=== PATIENT | female | born 1950 | race Two or more races ===

== ENCOUNTER → 2024-04-09 | Outpatient (CLI) | payer OTHER, MEDICAID, SELFPAY ==
[2024-04-08 10:55] LABS: Basophils % (Auto) 0 % (0-2.5); Eosinophils # (Auto) 0.2 Thou/mm3 (0.0-0.5); Eosinophils % (Auto) 2 % (0-10); Hematocrit 36.1 % (36.0-46.0); Hemoglobin 12.4 g/dL (12.0-16.0); Immature Granulocytes % (Auto) 0 % (0-0); Immature Granulocytes Auto 0.02 Thou/mm3 (0.00-0.00); Lymphocytes # (Auto) 2.7 Thou/mm3 (1.0-4.8); Lymphocytes % (Auto) 37 % (10-50); Mean Corpuscular HGB Conc 34.3 g/dl (31.0-37.0); Mean Corpuscular Hemoglobin 30.2 pg (25.0-35.0); Mean Corpuscular Volume 88 fL (80-100); Monocytes # (Auto) 0.6 Thou/mm3 (0.0-0.8); Monocytes % (Auto) 8 % (0-12); Neutrophils # (Auto) 3.7 Thou/mm3 (1.8-7.7); Neutrophils % (Auto) 52 % (37-80); Nucleated Red Blood Cell % 0 /100 WBC (0); Platelet Count 225 Thou/mm3 (140-440); White Blood Count 7.2 Thou/mm3 (3.6-11.0)
[2024-04-08 11:01] LABS: INR 0.9 (0.9-1.3); Partial Thromboplastin Time 25.1 Seconds (22.0-36.0); Prothrombin Time 10.3 Seconds (9.0-12.2)
--- NOTE | 2024-04-09 09:30 | XR_ITS ---
Examinations: Ultrasound-guided percutaneous breast biopsy, right breast 10:00 nodule Right breast sonography limited. Exam date and time: April 09, 2024 1044 hours INDICATIONS: Right breast sonogram 01/12/2024 BI-RADS 4 suspicious mass 10:00 position right breast. Informed consent provided. Technique: A timeout was completed verifying correct patient, procedure, site, positioning, and special equipment if applicable Informed consent provided. The patient was placed in a supine position for the breast biopsy. Sonographic images of the breast were performed for localization of the suspicious nodule The patient's breast was prepped and draped in sterile fashion. Maximum sterile barrier technique, hand hygiene, ultrasound sterile technique 1% lidocaine was used to anesthetize the skin and breast adjacent to the suspicious nodule. Utilizing ultrasonographic guidance, 8 core biopsies were obtained of the suspicious nodule utilizing an 18-gauge BioPince needle. The specimens appears satisfactory. US guided breast biopsy marker placement. Estimated blood loss 3 cc. The patient tolerated the procedure well and there were no complications. Impression: Successful ultrasound-guided percutaneous breast biopsy, right breast 10:00 nodule. Ultrasound guided breast biopsy marker placement.
== END | disposition home or self-care (01) ==
LOC: SDIM 09:13 → SIRX 10:39
PROVIDERS: Radiology Diagnostic Radiology; PCP Nurse Practitioner Family; Referring Provider Nurse Practitioner Family; Visit Provider Nurse Practitioner Family
DX: C50.411 Malignant neoplasm of upper-outer quadrant of right female breast (principal); Z17.0 Estrogen receptor positive status [ER+]; Z01.818 Encounter for other preprocedural examination
CPT/HCPCS: 19083; 36415; 85025; 85610; 85730; A4648

== ENCOUNTER 2024-04-25 18:34 | Emergency (ER) | payer OTHER, MEDICAID, SELFPAY ==
[2024-04-25 18:35] VITALS: BMI 29.2
[2024-04-25 18:49] VITALS: BP 169/77; PULSE 77; RESP 18; TEMP 36.9; O2SAT 99
--- NOTE | 2024-04-25 20:09 | PD.EDRME ---
Rapid Medical Screening Exam RME Arrival date/time: 04/25/24 18:34 73 year old female present to ED for c/o of LLQ for 4 days I have greeted and performed a focused initial assessment of this patient. A comprehensive ED assessment and evaluation of the patient, analysis of all test results, and completion of the medical decision making process will be conducted by additional ED providers. Chief Complaint: Abdominal Pain Time Seen by Provider: 04/25/24 18:56 Vital signs: Vital Signs Temperature 98.5 F 04/25/24 18:49 Pulse Rate 77 04/25/24 18:49 Respiratory Rate 18 04/25/24 18:49 Blood Pressure 169/77 H 04/25/24 18:49 Pulse Oximetry (%) 99 04/25/24 18:49 Oxygen Delivery Method Room Air 04/25/24 18:49
[2024-04-25 20:49] LABS: Lactate (Lactic Acid) 1.2 mMol/L (0.4-2.0)
[2024-04-25] MEDS: HYDROcodone/APAP 5/325 TABLET 1 TAB PO (20:49)
[2024-04-25] MEDS: ONDANSETRON ODT 4 MG TABRAP PO (20:49)
[2024-04-25 20:57] LABS: Collection Type, Urine Voided
[2024-04-25 21:03] LABS: Basophils % (Auto) 0 % (0-2.5); Eosinophils # (Auto) 0.1 Thou/mm3 (0.0-0.5); Eosinophils % (Auto) 1 % (0-10); Hematocrit 38.9 % (36.0-46.0); Hemoglobin 13.4 g/dL (12.0-16.0); Immature Granulocytes % (Auto) 0 % (0-0); Immature Granulocytes Auto 0.07 Thou/mm3 (0.00-0.00); Lymphocytes # (Auto) 3.5 Thou/mm3 (1.0-4.8); Lymphocytes % (Auto) 22 % (10-50); Mean Corpuscular HGB Conc 34.4 g/dl (31.0-37.0); Mean Corpuscular Hemoglobin 29.6 pg (25.0-35.0); Mean Corpuscular Volume 86 fL (80-100); Monocytes # (Auto) 1.5 Thou/mm3 (0.0-0.8); Monocytes % (Auto) 10 % (0-12); Neutrophils # (Auto) 10.5 Thou/mm3 (1.8-7.7); Neutrophils % (Auto) 67 % (37-80); Nucleated Red Blood Cell % 0 /100 WBC (0); Platelet Count 256 Thou/mm3 (140-440); Red Blood Count 4.52 Miln/mm3 (4.00-5.20); White Blood Count 15.8 Thou/mm3 (3.6-11.0)
[2024-04-25 21:09] LABS: Alanine Aminotransferase 22 U/L (10-49); Albumin, Serum 5.2 gm/dL (3.4-4.8); Alkaline Phosphatase 80 U/L (46-116); Anion Gap 9 (7-16); Aspartate Amino Transferase 15 U/L (0-34); BUN/Creatinine Ratio 13 Ratio (12-20); Bilirubin,Total 0.5 mg/dL (0.3-1.2); Blood Urea Nitrogen 13 mg/dL (9-23); Calcium 10.7 mg/dL (8.3-10.6); Calcium (Corrected) 10.7 mg/dL (8.5-10.1); Carbon Dioxide 25.9 mMol/L (20.0-31.0); Chloride 101 mMol/L (98-107); Estimated Creatinine Clearance 50.4 mL/min (>60); Globulin 2.6 gm/dL (2.3-3.5); Glucose 126 mg/dL (74-106); Osmolality,Calculated 274 (275-295); Potassium 4.4 mMol/L (3.4-5.1); Sodium 136 mMol/L (136-145); Total Protein 7.8 gm/dL (5.7-8.2); eGFR 59 See Note
[2024-04-25 21:09] LABS: Bilirubin,Urine Negative (Negative); Blood,Urine Negative (Negative); Clarity,Urine Clear (Clear/Hazy); Color,Urine Colorless (Lt Yel-Yel); Glucose, Urine Negative (Negative); Ketones,Urine Negative (Negative); Leukocyte Esterase,Urine Negative (Negative); Nitrite,Urine Negative (Negative); Protein,Urine Negative (Neg - Trace); RBC,Urine 2 /hpf (0-3); Specific Gravity,Urine 1.014 (1.001-1.035); Squamous Epithelial Cell,Urine < 1 /hpf (0-5); Urobilinogen,Urine Negative mg/dL (0.0-1.0); WBC,Urine 1 /hpf (0-5)
[2024-04-25 21:21] LABS: INR 0.9 (0.9-1.3); Prothrombin Time 9.9 Seconds (9.0-12.2)
--- NOTE | 2024-04-26 | XR_ITS ---
Examination: CT abdomen with intravenous contrast CT pelvis with intravenous contrast 2-D coronal reconstructions 2-D sagittal reconstructions Date and time of exam:April 26, 2024 0723 hrs. Comparison July 22, 2020 Indications: Left lower abdominal pain beginning 4 days ago, history acute sigmoid diverticulitis on CT study July 22, 2020. CTDI: vol (mGy) 8.63 DLP: (mGycm) 491 Technique: Multiple axial sections of the abdomen and pelvis have been obtained. 64 slice high-resolution scanner used. 3 mm axial sections have been obtained, post intravenous injection 60 cc [id number] 2-D sagittal, coronal reconstructions obtained. Low dose protocols were performed. One or more of the following dose reduction techniques were used; automated exposure control, adjustment of the mA and/or KV according to patient size, use of iterative reconstruction technique. Findings: No focal liver or splenic lesions Absent gallbladder No pancreatic or adrenal mass No renal or ureteral calculi, no hydronephrosis Abdominal aortic calcification no aneurysmal dilatation Normal appendix No bowel obstruction Colonic diverticulosis Acute sigmoid diverticulitis, axial images 162 through 172, no peridiverticular abscess Anteverted uterus Prominent osteopenia with moderate degenerative disc disease L5-S1 Moderate narrowing hip joints Impression: Acute sigmoid diverticulitis, no peridiverticular abscess Rectosigmoid arvizu are thickened, recommend colonoscopy post treatment for the patient's diverticulitis
[2024-04-26 02:15] VITALS: BP 144/78; PULSE 60; RESP 16; TEMP 37.1; O2SAT 98
--- NOTE | 2024-04-26 02:41 | PRELIM_ITS ---
CT scan of the abdomen and pelvis with intravenous contrast (axial sections with sagittal and coronal reformats). April 26, 2024 at 0139 hours Clinical History: Left lower quadrant for 4 days, history of colitis. Comparison: No prior study is available for comparison. Findings:There are multiple colo degardo diverticula with focal thickening of the sigmoid colon and surrounding fat stranding. There is no free air or free fluid.No evidence of bowel obstruction. The appendix is within normal limits.Fluid filled small bowel loops seen.The liver, spleen, pancreas, adrenals and kidneys are unremarkable.Gall bladder not visualized, surgically absent.The urinary bladder is unremarkable. The uterus and adnexa are unremarkable. Degenerative changes are identified in the spine. The lung bases are clear.The aort a and its branches demonstrate atheromatous calcification without evidence of aneurysm. Impression:Ac arturo sigmoid diverticulitis without abscess or free air.Fluid filled small bowel loops, non specific. Report Electronically Signed By: Brad Baez 04/26/2024 2:40:11 AM [EST]
--- NOTE | 2024-04-26 03:02 | PD.EDABDPN ---
ED Abdominal Pain RME/HPI General Chief Complaint: Abdominal Pain Stated complaint: ABD PAIN x 4 DAYS AND HX DIVETICULITIS Time seen by provider: 04/25/24 18:56 Arrival date/time: 04/25/24 18:34 73 year old female present to emergency room with c/o of LLQ for 4 days. history of diverticulitis LOCATION: LLQ SEVERITY: Symptoms are described as being severe with limitations on activities of daily living QUALITY: Symptoms are described as being cramping CONTEXT: The patient is unable to identify any inciting events. DURATION/TIMING: The symptoms started approximately 4 day ago and have been waxing/waning but always present without ever completely resolving. ASSOCIATED SYMPTOMS: The patient is unable to identify any other associated symptoms. MODIFYING FACTORS: The patient is unable to identify any alleviating or aggravating symptoms. PERTINENT ROS: no fevers, no anorexia, no nausea or vomiting, no diarrhea, no ripping or tearing sensations, no syncope or presyncopal symptoms, denies trauma, denies genital pain REVIEW OF SYSTEMS: See History of Present Illness - with the exception of those mentioned in the history of present illness, all other systems reviewed and reported as negative GENERAL: In general the patient is awake, interactive, in an emergency department gurney. HEAD/EYES/EARS/NOSE/THROAT: normo-cephalic, atraumatic, mucus membranes are moist, anicteric, palpebral conjunctiva is pink, trachea is midline. CARDIOVASCULAR: regular rate and regular rhythm, no murmurs, heart sounds are not distant, strong pulses in all four extremities that are equal and symmetric bilateral upper and lower extremities, normal capillary refill. CHEST/PULMONARY: normal chest rise and fall, good air movement, clear to auscultation bilaterally, normal inspiratory to expiratory ratios without evidence of respiratory distress. NECK: No midline/Paraspinal tenderness, no step off ROM/Strenght intact No Kernig and bruzinski sign. No trauma ABDOMEN: soft, LLQ tenderness , no masses appreciated BACK: normal range of motion without pain. NEUROLOGICAL: cranio-facial features are symmetric, moves all four extremities equally without obvious limitations or weakness. EXTREMITY: no tenderness to palpation over the long bones or large joints of the bilateral upper and lower extremities, no joint swelling, no joint erythema, no signs of trauma, no unilateral leg swelling and no peripheral edema. SKIN: warm, dry, well-perfused, no jaundice, no rash, no telangiectasias or petechia. PSYCH: calm, cooperative, no evidence of psychosis or agitation RME / HPI RME / HPI narrative: 04/25/24 18:34 73 year old female present to ED for c/o of LLQ for 4 days I have greeted and performed a focused initial assessment of this patient. A comprehensive ED assessment and evaluation of the patient, analysis of all test results, and completion of the medical decision making process will be conducted by additional ED providers. Related Data Home Medications ?Medication ?Instructions ?Recorded ?Confirmed simvastatin 5 mg tablet 20 mg PO DAILY 12/13/17 10/10/23 metformin 500 mg tablet 500 mg PO QDAY 04/23/20 10/10/23 diclofenac sodium 25 mg 25 mg PO QDAY 10/24/22 10/10/23 tablet,delayed release hydrochlorothiazide 25 mg tablet 25 mg PO QDAY 10/24/22 10/10/23 losartan 100 mg tablet 100 mg PO QDAY 10/24/22 10/10/23 omega-3 acid ethyl esters 1 gram 1 cap PO QDAY 10/24/22 10/10/23 capsule estradiol 0.01% (0.1 mg/gram) 2 g vaginal DIRECTED 06/08/23 10/10/23 vaginal cream (Estrace) Previous Rx's ?Medication ?Instructions ?Recorded amoxicillin 875 mg-potassium 1 tab PO Q8H 5 days #15 tabs 04/26/24 clavulanate 125 mg tablet Allergies Allergy/AdvReac Type Severity Reaction Status Date / Time No Known Allergies Allergy Verified 04/25/24 18:37 Course Quality Measures none Orders Category Date Time Status CT Screening NOW Care 04/25/24 20:10 Active IV [Insert IV] STAT Care 04/25/24 20:[address] abdomen pelvis w con Stat Exams 04/25/24 20:09 Taken Blood Culture (Lab) Stat Lab 04/25/24 20:22 Received CBC Stat Lab 04/25/24 20:22 Completed CMP [Comprehensive Metabolic Panel] Stat Lab 04/25/24 20:22 Completed INR [Prothrombin Time with INR] Stat Lab 04/25/24 20:22 Completed Lactic Acid [Lactate (Lactic Acid)] Stat Lab 04/25/24 20:22 Completed UA [Urinalysis] Stat Lab 04/25/24 20:50 Completed Amoxicillin/Pot Clav 875 [Augmentin 875] Med 04/26/24 02:40 Discontinued 1 tab PO X1 ONE HYDROcodone*/APAP 5/325 [Frederick 5/325] Med 04/25/24 20:10 Discontinued 1 tab PO X1 ONE Ondansetron Odt [Zofran Odt] Med 04/25/24 20:10 Discontinued 4 mg PO X1 ONE Piper/Tazo Inj [Zosyn Inj] 3.375 gm Med 04/26/24 02:21 Discontinued Sodium Chloride 0.9% (P) [Ns 0.9% (P)] 50 ml IV X1 Piper/Tazo Inj [Zosyn Inj] 3.375 gm Med 04/26/24 03:00 Active Sodium Chloride 0.9% (P) [Ns 0.9% (P)] 50 ml IV X1 Vital Signs Vital signs: Vital Signs Temperature 98.5 F 04/25/24 18:49 Pulse Rate 77 04/25/24 18:49 Respiratory Rate 18 04/25/24 18:49 Blood Pressure 169/77 H 04/25/24 18:49 Pulse Oximetry (%) 99 04/25/24 18:49 Oxygen Delivery Method Room Air 04/25/24 18:49 Abdominal Pain MDM MDM Narrative MDM Narrative:: Patient has diverticulitis that is amenable to oral antibiotics. Patient has no peritoneal signs or signs of perforation. Patient?s symptoms not typical for other emergent causes of abdominal pain such as, but not limited to, appendicitis, abdominal aortic aneurysm, surgical biliary disease, acute coronary syndrome, etc. Patient will be discharged with strict return precautions and follow up with primary MD within 12-24 hours for further evaluation. ?Patient understands that they may require admission and IV antibiotics and possibly surgery if they do not improve with oral antibiotics. Patient data External records reviewed:: None Clinical information provided by:: patient and family Social determinants that could affect healthcare access:: none Patient has the following chronic illnesses:: none How is presenting disease/condition affected by chronic disease/condition?: exacerbated by Evaluation data The following diagnostics were reviewed and interpreted by me:: lab results and radiology exam(s) Lab and/or radiology exams considered but not ordered:: none Interpretation Summary: ct: Findings: There are multiple colonic diverticula with focal thickening of the sigmoid colon and surrounding fat stranding. There is no free air or free fluid. No evidence of bowel obstruction. The appendix is within normal limits. Fluid filled small bowel loops seen. The liver, spleen, pancreas, adrenals and kidneys are unremarkable. Gallbladder not visualized, surgically absent. The urinary bladder is unremarkable. The uterus and adnexa are unremarkable. Degenerative changes are identified in the spine. The lung bases are clear. The aorta and its branches demonstrate atheromatous calcification without evidence of aneurysm. Impression: Acute sigmoid diverticulitis without abscess or free air. Fluid filled small bowel loops, non specific. cbc: 15k urine no infection cmp no acute findings Medications / Prescriptions Medications or Prescriptions considered but not ordered:: none Medication administrations:: Medication Administration History Piperacillin Sod/Tazobactam (Sod 3.375 gm/ Sodium Chloride) 50 mls @ 100 mls/hr IV X1 ONE Stop: 04/26/24 03:29 Discontinued Medications Hydrocodone Bitart/Acetaminophen (Hydrocodone/Apap 5/325 Tablet) 1 tab PO X1 ONE Stop: 04/25/24 20:11 Last Admin: 04/25/24 20:49 Dose: 1 tab Documented By: Amoxicillin/Clavulanate Potassium (Amoxicillin/Pot Clav 875 Tablet) 1 tab PO X1 ONE Stop: 04/26/24 02:41 Piperacillin Sod/Tazobactam (Sod 3.375 gm/ Sodium Chloride) 50 mls @ 100 mls/hr IV X1 ONE Stop: 04/26/24 02:50 Last Admin: 04/26/24 02:49 Dose: Not Given Documented By: RC Non-Admin Reason: Discontinued Ondansetron HCl (Ondansetron Odt 4 Mg Tabrap) 4 mg PO X1 ONE; Protocol Stop: 04/25/24 20:11 Last Admin: 04/25/24 20:49 Dose: 4 mg Documented By: as stated above Consultations Consultation(s) initiated? (list below): No Diagnosis Differential diagnosis abdominal pain: abdominal pain, acute appendicitis, constipation, diverticulitis, gastroenteritis, pancreatitis and small bowel obstruction Most likely diagnosis given after review of the tests above:: diverticulitis Admission Indicated Admission indicated?: not indicated Admission Request Was there a request for admission?: No Disposition Plan Disposition Plan: Discharge Discharge Attestation Discharge Attestation: The patient and all family members were given an opportunity to ask questions and understood the discharge instructions. Discharge instructions specifically effects, indications for sooner follow up or return to the emergency department, and the expected course of current diagnosis. Patient condition: Stable Discharge Plan Plan Patient Disposition: HOME (Self Care) Health Concerns: Follow with PMD as directed Return to ED if sx worsen Prescriptions/Referrals Prescriptions/Med Rec: New amoxicillin-pot clavulanate 875-125 mg tablet 1 tab PO Q8H 5 Days Qty: 15 0RF No Action estradiol [Estrace] 0.01 % (0.1 mg/gram) cream 2 g vaginal DIRECTED Patient Comments: Twice a week metformin 500 mg Tablet 500 mg PO QDAY simvastatin 5 mg Tablet 20 mg PO DAILY diclofenac sodium 25 mg tablet,delayed release (DR/EC) 25 mg PO QDAY hydrochlorothiazide 25 mg tablet 25 mg PO QDAY losartan 100 mg tablet 100 mg PO QDAY omega-3 acid ethyl esters 1 gram capsule 1 cap PO QDAY Referrals: Robert Lorenzo MD [Primary Care Provider] - In 1 week Problem List Clinical Impression: Diverticulitis Patient/Caregiver Discharge Instructions Education Materials: ED Diverticulitis Print Language: Greenlandic Stand Alone Forms: Renata Award Info., Patient Portal Info Letter
[2024-04-26] MEDS: PIPER/TAZO INJ 3.375 GM in SODIUM CHLORIDE 0.9% (P) 50 ML IV (03:17)
== END 2024-04-26 04:29 | disposition home or self-care (01) ==
PROVIDERS: Physician Assistant; Emergency Provider Emergency Medicine; PCP Family Medicine
DX: K57.32 Diverticulitis of large intestine without perforation or abscess without bleeding (principal)
CPT/HCPCS: 36415; 74177; 80053; 81001; 83605; 85025; 85610; 87040; 99285; A4649; J2543; J7050; Q0162; Q9967; A9270

== ENCOUNTER → 2024-06-03 | Outpatient (CLI) | payer OTHER, MEDICAID, SELFPAY ==
--- NOTE | 2024-06-03 | XR_ITS ---
Examination: PA chest single view TECHNIQUE: Upright PA chest single view Exam date and time: June 03, 2024 0957 hours INDICATIONS: Chest pain today FINDINGS: Normal heart size. Lungs are clear. The osseous structures are intact IMPRESSION: No active disease
--- NOTE | 2024-06-03 09:51 | XR_ITS ---
Examination: Esophagram standard 23 spot fluoroscopic films of the esophagus Exam date and time: June 03, 2019 5:10 AM INDICATIONS: Difficulty swallowing, palpable lymph nodes in the neck several months TECHNIQUE AND FINDINGS: Patient swallowed thin barium with 23 spot fluoroscopic films of the esophagus obtained Fluoroscopy 0.2 minute radiation dose 3128 milligray Primary peristaltic esophageal waves noted Small sliding esophageal hernia Moderate intermittent gastroesophageal reflux 20% stricture at the gastroesophageal junction No esophageal ulcerations IMPRESSION: Moderate intermittent gastroesophageal reflux 20% stricture at the gastroesophageal junction Given the patient's presentation, consider CT soft tissue neck post intravenous contrast follow-up
== END | disposition home or self-care (01) ==
LOC: CDIM 09:32
PROVIDERS: PCP Nurse Practitioner Family; Referring Provider Nurse Practitioner Family; Visit Provider Nurse Practitioner Family
DX: K21.9 Gastro-esophageal reflux disease without esophagitis (principal); K22.2 Esophageal obstruction
CPT/HCPCS: 74220

== ENCOUNTER → 2024-10-08 | Outpatient (BNVA) | payer OTHER, MEDICAID, SELFPAY | END | disposition home or self-care (01) | PROVIDERS: PCP Family Medicine; Referring Provider Family Medicine; Visit Provider Urology | DX: N20.0 Calculus of kidney (principal); I10 Essential (primary) hypertension; E66.9 Obesity, unspecified; Z68.30 Body mass index [BMI] 30.0-30.9, adult; Z87.440 Personal history of urinary (tract) infections; E11.40 Type 2 diabetes mellitus with diabetic neuropathy, unspecified; E78.5 Hyperlipidemia, unspecified; Z86.73 Personal history of transient ischemic attack (TIA), and cerebral infarction without residual deficits | CPT/HCPCS: 81003; 99212; G0463 ==

== ENCOUNTER 2024-10-09 18:30 | Emergency (ER) | payer OTHER, MEDICAID, SELFPAY ==
[2024-10-09 18:31] VITALS: BMI 29.5
[2024-10-09 19:19] VITALS: BP 149/67; PULSE 73; RESP 18; TEMP 37.3; O2SAT 96
--- NOTE | 2024-10-09 19:28 | PD.EDWOUND ---
ED Wound/Laceration-RME/HPI General Chief Complaint: Wound/Laceration Stated Complaint: RIGHT BUTTOCK ABCESS X1WK Time Seen by Provider: 10/09/24 18:50 Arrival date/time: 10/09/24 18:30 RME / HPI RME / HPI narrative: 74-year-old female patient came in for evaluation regarding redness and swelling, left posterior thigh. It has been ongoing for more than a week, seen by PCP and was started on Bactrim. Patient was advised to come to the emergency room for possible I&D. Denies any fever denies any other complaints. Related Data Home Medications ?Medication ?Instructions ?Recorded ?Confirmed metformin 500 mg tablet 500 mg PO QDAY 04/23/20 10/08/24 losartan 100 mg tablet 100 mg PO QDAY 10/24/22 10/08/24 diclofenac sodium 25 mg 25 mg PO BID 10/08/24 10/08/24 tablet,delayed release letrozole 2.5 mg tablet 2.5 mg PO QDAY 10/08/24 10/08/24 simvastatin 10 mg tablet 10 mg PO QDAY 10/08/24 10/08/24 sulfamethoxazole 800 1 tab PO BID 10/08/24 10/08/24 mg-trimethoprim 160 mg tablet (Bactrim DS) Allergies Allergy/AdvReac Type Severity Reaction Status Date / Time No Known Allergies Allergy Verified 10/09/24 18:33 Review of Systems Review of Systems Narrative Review of Systems: Review of system reviewed and within normal limits except mentioned in HPI ED Exam Narrative Physical exam: VITAL SIGNS: Reviewed. GENERAL APPEARANCE: Alert and interactive, follows commands, no acute distress, HEAD AND FACE: Non-traumatic. ENT: PERRL, pink conjunctivitis, eyelid no trauma, Mucous membrane moist. NECK: Supple, nontender, no nuchal rigidity. CHEST: No tenderness, no crepitus, no paradoxical movement, no retractions. LUNGS: Clear, well ventilated, symmetric, no rales, no wheezing, no ronchi, no stridor, good breath sounds bilaterally. HEART: Regular rate, regular rhythm, no murmur, no gallops. ABDOMEN: Soft, positive bowel sounds, nondistended, no guarding, nontender, no rebound, no masses, RECTAL: Deferred. GENITAL: Deferred. NEUROLOGICAL: Gross motor function intact sensory function intact, Appropriate for age. MUSCULOSKELETAL: low back nontender, full range of motion. EXTREMITIES:+2x2 cm redness swelling, fluctuant, left posterior thigh nontender, full range of motion. SKIN: Color pink, dry, no rash, no lacerations, no abrasions, no contusions. LYMPHATICS: Deferred. Course Quality Measures none Orders Category Date Time Status Lidocaine 1% 20 ml [Xylocaine 1% 20 ML] Med 10/09/24 19:28 Discontinued 10 ml INFL X1 ONE Vital Signs Vital signs: Vital Signs Temperature 99.2 F 10/09/24 19:19 Pulse Rate 73 10/09/24 19:19 Respiratory Rate 18 10/09/24 19:19 Blood Pressure 149/67 H 10/09/24 19:19 Pulse Oximetry (%) 96 10/09/24 19:19 Oxygen Delivery Method Room Air 10/09/24 19:19 Wound / Laceration MDM Narrative MDM Narrative:: 74-year-old female patient came in for evaluation regarding redness and swelling, left posterior thigh. It has been ongoing for more than a week, seen by PCP and was started on Bactrim. Patient was advised to come to the emergency room for possible I&D. Denies any fever denies any other complaints. Incision and drainage was done by me see procedure notes patient was advised to continue taking antibiotic as prescribed by PCP,, Bactrim For removal of packing in 2 to 3 days Patient data External records reviewed:: None Clinical information provided by:: patient Social determinants that could affect healthcare access:: none Patient has the following chronic illnesses:: Diabetes mellitus hypertension How is presenting disease/condition affected by chronic disease/condition?: exacerbated by Evaluation data The following diagnostics were reviewed and interpreted by me:: other (specify) (None) Lab and/or radiology exams considered but not ordered:: None Interpretation Summary: None Medications / Prescriptions Medications or Prescriptions considered but not ordered:: None Medication administrations:: Medication Administration History Discontinued Medications Lidocaine HCl (Lidocaine Hcl 1% 20 Ml Vial) 10 ml INFL X1 ONE Stop: 10/09/24 19:29 None Consultations Consultation(s) initiated? (list below): No Diagnosis Wound Differential Diagnosis: abscess and other (Cellulitis,) Most likely diagnosis given after review of the tests above:: Right thigh abscess status post I&D Admission Indicated Admission indicated?: not indicated Admission Request Was there a request for admission?: No Disposition Plan Disposition Plan: Discharge Discharge Attestation Discharge Attestation: The patient and all family members were given an opportunity to ask questions and understood the discharge instructions. Discharge instructions specifically effects, indications for sooner follow up or return to the emergency department, and the expected course of current diagnosis. Patient condition: Stable Discharge Plan Plan Patient Disposition: HOME (Self Care) Discharge Disposition comment: Stable Prescriptions/Referrals Prescriptions/Med Rec: No Action sulfamethoxazole-trimethoprim [Bactrim DS] 800-160 mg tablet 1 tab PO BID letrozole 2.5 mg tablet 2.5 mg PO QDAY diclofenac sodium 25 mg tablet,delayed release (DR/EC) 25 mg PO BID simvastatin 10 mg tablet 10 mg PO QDAY metformin 500 mg Tablet 500 mg PO QDAY losartan 100 mg tablet 100 mg PO QDAY Referrals: Robert Lorenzo([facility])MD [Primary Care Provider] - In 1 week Problem List Clinical Impression: Abscess Patient/Caregiver Discharge Instructions Discharge Activity: activity as tolerated Education Materials: Abscess Drainage Additional Instructions: Thank you for the opportunity for serving you today. You are stable for discharged . You are advised to: Follow-up with your PCP in 1 to 2 days Return to ED for worsening of symptoms Increase oral fluids Take medication as prescribed For removal of packing in 3 days Continue the antibiotic that was prescribed by your PCP Print Language: Turkmen Stand Alone Forms: Renata Award Info., Patient Portal Info Letter
[2024-10-09 20:03] VITALS: BP 119/73; PULSE 64; RESP 18; TEMP 37.2; O2SAT 99
== END 2024-10-09 20:14 | disposition home or self-care (01) ==
PROVIDERS: Emergency Provider Emergency Medicine; PCP Family Medicine
DX: L02.31 Cutaneous abscess of buttock (principal)
CPT/HCPCS: 10060; 99283

== ENCOUNTER 2024-10-12 07:13 | Emergency (ER) | payer MEDICAID, SELFPAY ==
[2024-10-12 07:34] VITALS: BP 151/88; PULSE 69; RESP 16; TEMP 36.7; O2SAT 97; BMI 29.4
--- NOTE | 2024-10-12 08:29 | EDNOTE_ITS ---
ED Skin Abcess FB-RME/HPI General Chief complaint: Skin/Abscess/Foreign Body Stated complaint: Abscess from spider bite Time Seen by Provider: 10/12/24 07:42 Arrival date/time: 10/12/24 07:13 This is a 74-year-old female that comes into the emergency room for dressing change to left posterior thigh. Patient is status post abscess drainage. Patient was told to come back to the emergency room today to for dressing change. Patient did have a dressing change done by her primary doctor yesterday. Patient denies fever or chills. Patient continues to be on antibiotics. Patient does have a history of breast cancer, high blood pressure, diabetes, hyperlipidemia. Related Data Home Medications ?Medication ?Instructions ?Recorded ?Confirmed metformin 500 mg tablet 500 mg PO QDAY 04/23/2009/22 losartan 100 mg tablet 100 mg PO QDAY 10/24/2209/22 diclofenac sodium 25 mg 25 mg PO BID 10/08/24 tablet,delayed release letrozole 2.5 mg tablet 2.5 mg PO QDAY 10/08/2409/22 simvastatin 10 mg tablet 10 mg PO QDAY 10/08/2410/08 sulfamethoxazole 800 1 tab PO BID 10/08/24 mg-trimethoprim 160 mg tablet (Bactrim DS) Allergies Allergy/AdvReac Type Severity Reaction Status Date / Time No Known Allergies Allergy Verified 10/12/24 07:18 Review of Systems Review of Systems Systems Reviewed: All systems reviewed, normal except as documented Past Medical History Past Medical History NEUROLOGIC: Negative Neurological Disorders or Seizures CARDIAC: Positive Hypercholesterolemia, Hypertension and Hypotension; Negative Cardiac Disorders, Congestive Heart Failure, Edema, Cellulitis or Varicose Veins RESPIRATORY: Negative Chronic Obstructive Pulmonary Disease (COPD), Asthma, Tuberculosis or Sleep Apnea GASTROINTESTINAL: Positive Gastrointestinal Disorders, Gall Bladder Disease, Diverticulitis and Hemorrhoids; Negative Hepatitis or Colorectal Cancer GENITOURINARY: Positive Genitourinary Disorders and Kidney Stones; Negative Renal Disease REPRODUCTIVE: Positive Previous Pregnancies; Negative Breast Cancer or Pelvic Inflammatory Disease MUSCULOSKELETAL: Positive Musculoskeletal Disorders, Arthritis and Carpal Tunnel Syndrome ENT: Positive Cataracts ENDOCRINE: Positive Endocrine Disorders and Diabetes Mellitus Type 2; Negative Diabetes Mellitus Type 1 or Hypothyroidism HEMATOLOGIC: Positive Clotting Problems; Negative Blood Disorders or Sickle Cell Disease OTHER HISTORY: Positive Autoimmune Disease, Anesthesia Reactions and Chicken Pox; Negative Hospitalization, Developmental Delay, Shingles, Falls, Blood Transfusions, Blood Transfusion Reaction, Chemotherapy, Radiation Therapy, MRSA, Human Immunodeficiency Virus (HIV), Measles, Mumps, Rubella (Lithuanian Measles), Pertussis, Clostridium Difficile, Breast Cancer, Cervical Cancer or Colorectal Cancer Family History FAMILY HISTORY: Positive Family Cardiac Disorders, Family Cancer and Family Surgery; Negative Family Psychiatric Problems, Family Respiratory Disorders, Family Gastrointestinal Problems or Family Anesthesia Reaction Surgical History SURGICAL: Positive Nose Surgery, Joint Replacement and Tubal Ligation; Negative Cardiac Surgery, Pacemaker, Endocrine Surgery, Tonsillectomy, Hannah noidectomy, Nephrectomy or Neurologic Surgery Social History SMOKING STATUS: Never smoker ED Exam Narrative Physical exam: VITAL SIGNS: Reviewed. GENERAL APPEARANCE: Alert and interactive, follows commands, no acute distress HEAD AND FACE: Non-traumatic. ENT: PERRL, conjuctiva pink and clear, eyelid no trauma, Mucous membrane moist. NECK: Supple, nontender, no nuchal rigidity. CHEST: No tenderness, no crepitus, no paradoxical movement, no retractions. LUNGS: breathing even and unlabored HEART: Regular rate, cap refill less than 2 seconds ABDOMEN: Soft, nondistended, no guarding, nontender, no rebound, no masses, NEUROLOGICAL: Gross motor function intact sensory function intact, Appropriate for age. MUSCULOSKELETAL: low back nontender, full range of motion. EXTREMITIES: No redness no swelling no skin breakdown on bilateral foot and leg. Distal neurovascular status intact bilateral foot SKIN: Color pink, left posterior thigh dressing with packing see mdm Course Quality Measures none Vital Signs Vital signs: Vital Signs Temperature 98.1 F 10/12/24 07:34 Pulse Rate 69 10/12/24 07:34 Respiratory Rate 16 10/12/24 07:34 Blood Pressure 151/88 H 10/12/24 07:34 Pulse Oximetry (%) 97 10/12/24 07:34 Oxygen Delivery Method Room Air 10/12/24 07:34 Skin / Abscess / Foreign Body [facility] Narrative MDM Narrative:: I removed patient's old dressing and old packing. Patient had approximately what appears to be 18 cm of quarter inch plain packing. Patient does have some induration around the area but none no palpable fluctuance. I was able to put in approximately 10 cm of plain quarter inch packing. I told patient to have dressing changed again in 2 days. Patient can see her primary doctor or be seen here in the emergency room for an dressing change. Wound appears to be healing. No surrounding erythema. Patient feels comfortable plan of care. Patient data External records reviewed:: [facility] previous records Clinical information provided by:: patient Social determinants that could affect healthcare access:: none Patient has the following chronic illnesses:: see HPI How is presenting disease/condition affected by chronic disease/condition?: uneffected by Evaluation data The following diagnostics were reviewed and interpreted by me:: other (specify) (None) Lab and/or radiology exams considered but not ordered:: None Interpretation Summary: See note Medications / Prescriptions Medications or Prescriptions considered but not ordered:: None Medication administrations:: See MAR Consultations Consultation(s) initiated? (list below): No Diagnosis Skin/Abscess Differential Diagnosis: abscess of skin or subcutaneous tissue, cellulitis and other ([place]) Most likely diagnosis given after review of the tests above:: Abscess cellulitis Admission Indicated Admission indicated?: not indicated Admission Request Was there a request for admission?: No Disposition Plan Disposition Plan: Discharge Discharge Attestation Discharge Attestation: The patient and all family members were given an opportunity to ask questions and understood the discharge instructions. Discharge instructions specifically effects, indications for sooner follow up or return to the emergency department, and the expected course of current diagnosis. Patient condition: Stable Discharge Plan Plan Patient Disposition: HOME (Self Care) Patient condition on transfer: Stable Prescriptions/Referrals Prescriptions/Med Rec: No Action sulfamethoxazole-trimethoprim [Bactrim DS] 800-160 mg tablet 1 tab PO BID letrozole 2.5 mg tablet 2.5 mg PO QDAY diclofenac sodium 25 mg tablet,delayed release (DR/EC) 25 mg PO BID simvastatin 10 mg tablet 10 mg PO QDAY metformin 500 mg Tablet 500 mg PO QDAY losartan 100 mg tablet 100 mg PO QDAY [facility]: [facility]MD [Primary Care Provider] - In 1 week Problem List Clinical Impression: Abscess Patient/Caregiver Discharge Instructions Discharge Activity: activity as tolerated Education Materials: Abscess Drainage, ED Cellulitis Additional Instructions: Asuncion un altagracia con paige medico de cabecera en las proximas 24-48 horas. Regrese a la maria c de emergencias si hay evidencia de que los signos o sintomas empeoran. Continue antibiotics Print Language: Swedish Stand Alone Forms: Renata Award Info., Patient Portal Info Letter PA/HIGH RAW SUGAR BOILER Supervising Physician PA/HIGH RAW SUGAR BOILER Supervising Physician: silvio
== END 2024-10-12 09:25 | disposition home or self-care (01) ==
PROVIDERS: Emergency Provider Emergency Medicine; PCP Family Medicine
DX: L02.416 Cutaneous abscess of left lower limb (principal)
CPT/HCPCS: 99281

== ENCOUNTER 2024-10-14 06:49 | Emergency (ER) | payer OTHER, MEDICAID, SELFPAY ==
[2024-10-14 06:58] VITALS: BMI 29.2
[2024-10-14 07:16] VITALS: BP 133/76; PULSE 88; RESP 18; TEMP 36.9; O2SAT 99
--- NOTE | 2024-10-14 07:19 | EDNOTE_ITS ---
ED General RME/HPI General Chief complaint: General Adult/Misc Complain Stated complaint: RECHECK OF iNFECTED SPIDER BITE Time Seen by Provider: 10/14/24 07:07 Arrival date/time: 10/14/24 06:49 74-year-old female presents emergency department today for recheck of her abscess patient has packing in her right upper leg. Patient reports no fever nausea vomiting patient reports she feels like this is healing well. Limitations: no limitations Related Data Home Medications ?Medication ?Instructions ?Recorded ?Confirmed metformin 500 mg tablet 500 mg PO QDAY 04/23/2009/22 losartan 100 mg tablet 100 mg PO QDAY 10/24/2209/22 diclofenac sodium 25 mg 25 mg PO BID 10/08/24 tablet,delayed release letrozole 2.5 mg tablet 2.5 mg PO QDAY 10/08/2409/22 simvastatin 10 mg tablet 10 mg PO QDAY 10/08/2410/08 sulfamethoxazole 800 1 tab PO BID 10/08/24 mg-trimethoprim 160 mg tablet (Bactrim DS) Allergies Allergy/AdvReac Type Severity Reaction Status Date / Time No Known Allergies Allergy Verified 10/14/24 07:04 Review of Systems Review of Systems Systems Reviewed: All systems reviewed, normal except as documented Constitutional Constitutional: Reports system reviewed and no additional complaints, except as documented, Denies fever(s) and Denies headache(s) Eyes Eyes: Reports system reviewed and no additional complaints, except as documented and Denies blurry vision ENT Ears, Nose, Mouth, and Throat: Reports system reviewed and no additional complaints, except as documented, Denies headache(s), Denies nasal congestion and Denies nasal discharge Cardiovascular Cardiovascular: Reports system reviewed and no additional complaints, except as documented, Denies chest pain and Denies dyspnea Respiratory Respiratory: Reports system reviewed and no additional complaints, except as documented, Denies chest congestion, Denies cough and Denies dyspnea Gastrointestinal Gastrointestinal: Reports system reviewed and no additional complaints, except as documented and Denies abdominal pain Integumentary/Breasts Skin/Breast: Reports system reviewed and no additional complaints, except as documented, Denies rash and Reports other (Abscess with packing right upper leg) Neurologic Neurologic: Reports system reviewed and no additional complaints, except as documented, Reports as per HPI and Denies headache(s) Past Medical History Past Medical History NEUROLOGIC: Positive Transient Ischemic Attacks (TIA) (IN JUNE- NO RESIDUAL); Negative Neurological Disorders or Seizures CARDIAC: Positive Hypercholesterolemia, Hypertension and Hypotension; Negative Cardiac Disorders, Congestive Heart Failure, Edema, Cellulitis or Varicose Veins RESPIRATORY: Negative Chronic Obstructive Pulmonary Disease (COPD), Asthma, Tuberculosis or Sleep Apnea GASTROINTESTINAL: Positive Gastrointestinal Disorders, Gall Bladder Disease, Diverticulitis and Hemorrhoids; Negative Hepatitis or Colorectal Cancer GENITOURINARY: Positive Genitourinary Disorders and Kidney Stones; Negative Renal Disease REPRODUCTIVE: Positive Previous Pregnancies; Negative Breast Cancer or Pelvic Inflammatory Disease MUSCULOSKELETAL: Positive Musculoskeletal Disorders, Arthritis and Carpal Tunnel Syndrome ENT: Positive Cataracts ENDOCRINE: Positive Endocrine Disorders and Diabetes Mellitus Type 2; Negative Diabetes Mellitus Type 1 or Hypothyroidism HEMATOLOGIC: Positive Clotting Problems; Negative Blood Disorders or Sickle Cell Disease PSYCHO/SOCIAL: Positive Anxiety OTHER HISTORY: Positive Autoimmune Disease, Anesthesia Reactions and Chicken Pox; Negative Hospitalization, Developmental Delay, Shingles, Falls, Blood Transfusions, Blood Transfusion Reaction, Chemotherapy, Radiation Therapy, MRSA, Human Immunodeficiency Virus (HIV), Measles, Mumps, Rubella (Arabic Measles), Pertussis, Clostridium Difficile, Cancer, Breast Cancer, Cervical Cancer or Colorectal Cancer Family History FAMILY HISTORY: Positive Family Cardiac Disorders, Family Cancer and Family Surgery; Negative Family Psychiatric Problems, Family Respiratory Disorders, Family Gastrointestinal Problems or Family Anesthesia Reaction Surgical History SURGICAL: Positive Nose Surgery, Joint Replacement and Tubal Ligation; Negative Cardiac Surgery, Pacemaker, Endocrine Surgery, Tonsillectomy, Adenoidectomy, Nephrectomy or Neurologic Surgery Social History SMOKING STATUS: Never smoker ED Exam General Limitations: Present no limitations General appearance: Present alert and in no apparent distress Head Head exam: Present atraumatic, normocephalic and normal inspection Eye Eye exam: Present normal appearance, PERRL and EOMI; Absent conjunctival injection ENT ENT exam: Present normal exam, normal oropharynx and mucous membranes moist Neck Neck exam: Present normal inspection, full ROM and trachea midline Chest Chest inspection: Present normal inspection and symmetric chest wall rise Respiratory Respiratory exam: Present normal lung sounds bilaterally; Absent respiratory distress Cardiovascular Cardiovascular exam: Present regular rate, normal rhythm and normal heart sounds Abdominal Exam Abdominal exam: Present soft and normal bowel sounds; Absent distention, tenderness, guarding, rebound, rigidity, Guy's sign, Rovsing's sign or tenderness at McBurney's Point Abdominal tenderness: Absent RUQ or RLQ Extremities Exam Extremities exam: Present normal inspection and full ROM Back Exam Back exam: Present normal inspection and full ROM Neurological Exam Neurological exam: Present alert, oriented X3 and CN II-XII intact Psychiatric Psychiatric exam: Present normal affect and normal mood Skin Skin exam: Present intact, normal color and other (Superficial abscess with packing no surrounding erythema) Expanded Skin Exam Body image: 2 1. Superficial abscess with packing no surrounding erythema Course Quality Measures none Vital Signs Vital signs: Vital Signs Temperature 98.5 F 10/14/24 07:16 Pulse Rate 88 10/14/24 07:16 Respiratory Rate 18 10/14/24 07:16 Blood Pressure 133/76 H 10/14/24 07:16 Pulse Oximetry (%) 99 10/14/24 07:16 Oxygen Delivery Method Room Air 10/14/24 07:16 O2 saturation 9 9% room air within normal limits Discharge Plan Plan Patient Disposition: HOME (Self Care) Discharge Disposition comment: Stable Prescriptions/Referrals Prescriptions/Med Rec: No Action sulfamethoxazole-trimethoprim [Bactrim DS] 800-160 mg tablet 1 tab PO BID letrozole 2.5 mg tablet 2.5 mg PO QDAY diclofenac sodium 25 mg tablet,delayed release (DR/EC) 25 mg PO BID simvastatin 10 mg tablet 10 mg PO QDAY metformin 500 mg Tablet 500 mg PO QDAY losartan 100 mg tablet 100 mg PO QDAY Problem List Clinical Impression: Abscess re-check Patient/Caregiver Discharge Instructions Education Materials: Wound Care Additional Instructions: Please follow up with your primary care doctor in the next 24-48hrs for any worsening symptoms return here immediately Print Language: Sudanese Stand Alone Forms: Renata Award Info., Patient Portal Info Letter PA/DIETARY SERVICE AIDE Supervising Physician PA/DIETARY SERVICE AIDE Supervising Physician: Dr. kowalski [facility] Narrative [facility] hospital course: 74-year-old female presents emergency department today for recheck of her abscess patient has packing in her right upper leg. Patient reports no fever nausea vomiting patient reports she feels like this is healing well. On exam patient well-appearing patient does not appear toxic no acute distress Exam patient has what appears to be a superficial abscess to the right leg with packing in place packing is removed new dressing applied Patient discharged home in no distress to follow-up with primary care doctor in the next 24 to 48 hours and for any worsening symptoms to return to the ER immediately Clinical Information Provided by none Medical Records Reviewed [facility] Meds/Rx Considered, not Ordered None Labs/Rad/Tests considered, not Ordered None Chronic Illness/Social Conditions which may negatively complicate care or outcome(s)-explain: None or not applicable EKG EKG not done Lab Interpretation Labs: none Imaging Imaging interpretation: none Medication Administration(s) none Diagnosis Differential diagnosis: Abscess, cellulitis, cyst Most likely dx, and/or detailed dx discussion: Abscess versus insect bite with packing in place Dispositon Disposition: Discharge Home
== END 2024-10-14 07:22 | disposition home or self-care (01) ==
LOC: SERX 07:43
PROVIDERS: Emergency Provider Family Medicine
DX: L02.415 Cutaneous abscess of right lower limb (principal)
CPT/HCPCS: 99281